=== PATIENT | male | born 1960 ===

== ENCOUNTER 2017-09-14 15:02 | Outpatient (CLI) | payer MEDICAID ==
--- NOTE | 2017-09-14 15:43 | XRay Report ---
LEFT KNEE RADIOGRAPHS INDICATION: Knee pain. COMPARISON: None similar at this institution. FINDINGS: Standing AP, lateral, oblique and sunrise views of the left knee demonstrate mild degenerative spurring involving the tibial spines and the patella laterally. Superior patellar enthesophyte as well. Intact articulation with grossly preserved joint spaces. No suprapatellar effusion. CONCLUSION: Mild left knee degenerative spurring without acute radiographic abnormality. Thank you for the opportunity to participate in this patient's care.
== END 2017-09-14 15:03 | disposition home or self-care (01) ==
LOC: SPVIMAG 15:02
PROVIDERS: ATTEND Orthopaedic Surgery Sports Medicine
DX: M25.862 Other specified joint disorders, left knee (principal)